=== PATIENT | male | born 1945 | race American Indian/Alaskan Native ===

== ENCOUNTER 2017-08-02 18:32 | Inpatient (IN) | payer MEDICARE ==
--- NOTE | 2017-08-02 18:43 | Emergency Department Report ---
- General Stated complaint: POSS STROKE Time Seen by Provider: 08/02/17 18:37 Source: patient, EMS Mode of arrival: Stretcher Limitations: No Limitations - History of Present Illness Initial comments: Mr. Morocho is a 72-year-old male with history of hypertension, diabetes and HIV. No previous history of CVA. He had sudden onset of left arm hand weakness since 8:30 AM. He denies headache. Denies chest pain. Denies abdominal pain. He no longer takes aspirin. This medication was discontinued according to his report. MD Complaint: focal weakness -: Sudden Time: 08:30 Location: L hand, E Quality: tingling, numbness Consistency: constant Improves with: none Worsens with: none Associated Symptoms: denies other symptoms - Related Data Home Medications Medication Instructions Recorded Confirmed Last Taken Aspirin EC [Aspirin Enteric Coated 81 mg PO QDAY 05/31/14 06/03/15 02/11/15 TAB] Atazanavir Sulfate [Reyataz] 300 mg PO QDAY 05/31/14 06/03/15 02/11/15 Doxazosin Mesylate [Cardura] 1 mg PO DAILY 05/31/14 06/03/15 02/11/15 Ritonavir [Norvir] 100 mg PO QDAY 05/31/14 06/03/15 02/11/15 Rosuvastatin (Nf) [Crestor] 20 mg PO QHS 05/31/14 06/03/15 02/11/15 Previous Rx's Medication Instructions Recorded Last Taken Type Cyanocobalamin [Vitamin B-12] 1,000 mcg PO QDAY #30 tablet 06/07/14 02/11/15 Rx Insulin Glulisine (Sliding) 0 units SUB-Q AC PRN #1 bottle 06/07/14 02/11/15 Rx [Apidra (Sliding Scale)] Sodium Bicarbonate 650 mg PO TID #90 tablet 06/07/14 02/11/15 Rx ALBUTEROL Inhaler [ProAir HFA 1 puff IH TID #1 inha 07/26/14 02/11/15 Rx Inhaler] amLODIPine [Norvasc] 5 mg PO DAILY #30 tab 07/26/14 02/11/15 Rx Albuterol Sulfate [Ventolin HFA] 2 puff IH Q4H PRN #1 pump 02/15/15 Unknown Rx Famotidine [Pepcid] 20 mg PO BID #60 tablet 02/15/15 Unknown Rx Albuterol *Only Ed* [Proventil 2.5 mg IH TIDRT PRN #100 nebu 06/09/15 Unknown Rx 0.5% NEBS] Cyanocobalamin [Vitamin B-12] 1,000 mcg PO QDAY tablet 06/09/15 Unknown Rx Doxazosin [Cardura] 1 mg PO QDAY #30 tablet 06/09/15 Unknown Rx Famotidine [Pepcid] 20 mg PO QDAY #30 tablet 06/09/15 Unknown Rx Insulin Glargine [Lantus VIAL] 25 units SUB-Q HS #1 units 06/09/15 Unknown Rx Insulin Glulisine [Apidra] 6 units SUB-Q ACHS #2 vial 06/09/15 Unknown Rx Ipratropium/Albuterol Sulfate 1 ampul IH Q6HRT 20 Days ampul.neb 06/09/15 Unknown Rx [DUONEB *Not for PRN Use*] Metoprolol Xl [Metoprolol 100 mg PO QDAY #30 tablet 06/09/15 Unknown Rx SUCCINATE ER TAB] Allergies Allergy/AdvReac Type Severity Reaction Status Date / Time No Known Allergies Allergy Verified 05/31/14 06:25 ED Review of Systems ROS: Stated complaint: POSS STROKE Other details as noted in HPI Comment: All other systems reviewed and negative Eyes: denies: vision change Cardiovascular: denies: chest pain Gastrointestinal: denies: abdominal pain ED Past Medical Hx - Past Medical History Hx Hypertension: Yes Hx CVA: No Hx Heart Attack/AMI: Yes Hx Congestive Heart Failure: Yes Hx Diabetes: Yes Hx Renal Disease: Yes Hx COPD: Yes Hx HIV: Yes Additional medical history: Chronic anemia. Visually impaired due to glaucoma- both eyes. States HIV for more than 20 years. Pt on 2LNC @ home. Visually impaired - Surgical History Hx Open Heart Surgery: Yes (Triple Bypass) - Social History Smoking Status: Never Smoker - Medications Home Medications: Home Medications Medication Instructions Recorded Confirmed Last Taken Type Aspirin EC [Aspirin Enteric Coated 81 mg PO QDAY 05/31/14 06/03/15 02/11/15 History TAB] Atazanavir Sulfate [Reyataz] 300 mg PO QDAY 05/31/14 06/03/15 02/11/15 History Doxazosin Mesylate [Cardura] 1 mg PO DAILY 05/31/14 06/03/15 02/11/15 History Ritonavir [Norvir] 100 mg PO QDAY 05/31/14 06/03/15 02/11/15 History Rosuvastatin (Nf) [Crestor] 20 mg PO QHS 05/31/14 06/03/15 02/11/15 History Cyanocobalamin [Vitamin B-12] 1,000 mcg PO QDAY #30 tablet 06/07/14 06/03/15 Rx Insulin Glulisine (Sliding) 0 units SUB-Q AC PRN #1 bottle 06/07/14 06/03/15 Rx [Apidra (Sliding Scale)] Sodium Bicarbonate 650 mg PO TID #90 tablet 06/07/14 06/03/15 02/11/15 Rx ALBUTEROL Inhaler [ProAir HFA 1 puff IH TID #1 inha 07/26/14 06/03/15 02/11/15 Rx Inhaler] amLODIPine [Norvasc] 5 mg PO DAILY #30 tab 07/26/14 06/03/15 02/11/15 Rx Albuterol Sulfate [Ventolin HFA] 2 puff IH Q4H PRN #1 pump 02/15/15 06/03/15 Unknown Rx Famotidine [Pepcid] 20 mg PO BID #60 tablet 02/15/15 06/03/15 Unknown Rx Albuterol *Only Ed* [Proventil 2.5 mg IH TIDRT PRN #100 nebu 06/09/15 Unknown Rx 0.5% NEBS] Cyanocobalamin [Vitamin B-12] 1,000 mcg PO QDAY tablet 06/09/15 Unknown Rx Doxazosin [Cardura] 1 mg PO QDAY #30 tablet 06/09/15 Unknown Rx Famotidine [Pepcid] 20 mg PO QDAY #30 tablet 06/09/15 Unknown Rx Insulin Glargine [Lantus VIAL] 25 units SUB-Q HS #1 units 06/09/15 Unknown Rx Insulin Glulisine [Apidra] 6 units SUB-Q ACHS #2 vial 06/09/15 Unknown Rx Ipratropium/Albuterol Sulfate 1 ampul IH Q6HRT 20 Days ampul.neb 06/09/15 Unknown Rx [DUONEB *Not for PRN Use*] Metoprolol Xl [Metoprolol 100 mg PO QDAY #30 tablet 06/09/15 Unknown Rx SUCCINATE ER TAB] ED Physical Exam - General General appearance: alert, in no apparent distress - Head Head exam: Present: atraumatic, normocephalic - Eye Eye exam: Present: other (left eye opaque lens right pupil round slugguish) - ENT ENT exam: Present: normal exam, normal orophraynx, mucous membranes moist - Neck Neck exam: Present: normal inspection. Absent: tenderness, meningismus - Respiratory Respiratory exam: Present: normal lung sounds bilaterally. Absent: respiratory distress, wheezes, rales, rhonchi - Cardiovascular Cardiovascular Exam: Present: regular rate, normal rhythm, normal heart sounds. Absent: bradycardia, tachycardia, systolic murmur, diastolic murmur - GI/Abdominal GI/Abdominal exam: Present: soft. Absent: distended, tenderness, guarding, rebound - Extremities Exam Extremities exam: Present: other (both lower extremities are wrapped) - Assessment Assessment Interval: Baseline - Level of Consciousness 1a. Level of Consciousness: alert - LOC Questions 1b. LOC Questions: answers correctly - LOC Command 1c. LOC Commands: performs tasks correctly - Best Gaze 2. Best Gaze: normal - Visual 3. Visual: complete hemianopia - Facial Palsy 4. Facial Palsy: minor paralysis - Motor Arm 5b. Motor Arm Right: no drift 5a. Motor Arm Left: drift - Motor Leg 6a. Motor Leg Left: no drift 6b. Motor Leg Right: no drift - Limb Ataxia 7. Limb Ataxia: absent - Sensory 8. Sensory: mild/moderate sensory loss - Best Language 9. Best Language: no aphasia - Dysarthria 10. Dysarthria: normal - Extinction and Inattention 11. Extinction/Inattention: no abnormality - Scoring Total Score: 5 Stroke Severity: Moderate Stroke ED Course Vital Signs 08/02/17 18:50 Temperature 98.1 F Pulse Rate 72 Respiratory 16 Rate Blood Pressure 136/58 [Right] O2 Sat by Pulse 100 Oximetry - Reevaluation(s) Reevaluation #1: 08/02/17 18:44 I performed a brief neurologic exam while patient was on EMS stretcher. Activated Code Stroke. Reevaluation #2: 08/02/17 18:56 I was contacted by the radiology department. Verbal report given to me. No acute findings of stroke. I have ordered aspirin therapy. ED Medical Decision Making - Lab Data Result diagrams: 08/02/17 18:54 08/02/17 18:54 - Medical Decision Making Mr. Morocho presents with left arm left hand weakness since 8:30 for the past 10 hours. Due to time of onset TPA therapy is not indicated. I have ordered aspirin therapy. I spoke with told her neurologist Dr. Chicas who recommended admission. Patient does not meet criteria for thrombectomy due to mild stroke low NIHSS. When I reexamined Mr. Morocho. Stated that he's had pain in the left arm. I' m concerned that he may have had trauma due to fall not reported unwitnessed. Forearm and humerus x-rays negative for fracture or dislocation. He will be admitted to our hospitalist service for neuro evaluation. Critical Care Time: Yes (45) Critical care attestation.: If time is entered above; I have spent that time in minutes in the direct care of this critically ill patient, excluding procedure time. ED Disposition Clinical Impression: CVA (cerebral vascular accident) Disposition: [id number] OP ADMIT IP TO THIS HOSP Is pt being admited?: Yes Does the pt Need Aspirin: No Condition: Stable Time of Disposition: 21:50
--- NOTE | 2017-08-02 18:56 | Cat Scan Report ---
FINAL REPORT EXAM: CT HEAD/BRAIN WO CON HISTORY: neuro deficits < 6hrs or sx present upon awakening COMPARISON: CT of the head from May 2015. TECHNIQUE: Axial images obtained skull base through vertex. FINDINGS: No acute intracranial hemorrhage, midline shift or pathologic extra axial fluid collection. Age related volume loss with compensatory dilatation of the ventricular system and chronic small vessel ischemic disease. Otherwise, joy-white differentiation preserved. Calvarium grossly intact.Prominent benign calcification along the anterior falx. No hyperdense MCA sign. No loss of the subinsular cortex. Prior cataract surgery. Mild mucosal thickening the paranasal sinuses. Mastoid air cells are clear. Benign subcentimeter calcification along the inner table of the left frontal calvarium. This may reflect a small dural calcification or benign meningioma (series 2, image 31). This is stable from prior study. IMPRESSION: No grossly acute intracranial abnormality. Stable mild age related volume loss and chronic small vessel ischemic disease. No evidence of acute transcortical infarct or intracranial hemorrhage by CT at this time. No significant change from prior study. If clinical concern for acute intracranial process remains, MRI would be suggested for further evaluation. RADHA OSR notified of results on August 02, 2017 at 1849 hours EST.
[2017-08-02] MEDS ORDERED: BABY ASPIRIN PO ONE (18:57)
[2017-08-02 19:10] LABS: Hematocrit 27.3 % (35.5-45.6); Mean Corpuscular HGB Conc 33 % (32-34); Mean Corpuscular Hemoglobin 29 pg (28-32); Mean Corpuscular Volume 88 fl (84-94); Red Blood Count 3.11 M/mm3 (3.65-5.03); Red Cell Distribution Width 17.1 % (13.2-15.2)
[2017-08-02 19:11] LABS: Mean Platelet Volume 8.5 fl (6-12); Platelet Count 210 K/mm3 (140-440)
[2017-08-02 19:21] LABS: INR 1.28 (0.87-1.13); Thrombin Time 16.9 Sec. (15.1-19.6)
[2017-08-02 19:47] LABS: Albumin 3.5 g/dL (3.9-5); Calcium 8.9 mg/dL (8.4-10.2)
[2017-08-02] MEDS ORDERED: NORCO 5/325 PO ONE (19:53)
[2017-08-02 20:02] LABS: Anisocytosis 1+; Basophils % (Manual) 0 % (0.0-1.8); Total Cells Counted 100
[2017-08-02 20:03] LABS: Chol/HDL Ratio 3.66 %; Hypochromasia 1+; Ovalocytes Few; Platelet Estimate Consistent w Auto; Poikilocytosis Few
[2017-08-02 20:32] LABS: Nucleated Red Blood Cells 0.4 % (0.0-0.9)
--- NOTE | 2017-08-02 20:37 | XRay Report ---
FINAL REPORT EXAM: XR HUMERUS 2+V LT HISTORY: arm pain COMPARISON: None available. FINDINGS: Two views of the left humerus obtained. Bony structures are intact. Joint spaces are preserved. No acute fracture dislocation. IMPRESSION: No acute bony abnormality.
--- NOTE | 2017-08-02 20:38 | XRay Report ---
FINAL REPORT EXAM: XR FOREARM LT HISTORY: arm pain COMPARISON: Left humerus from the same date. FINDINGS: Two views of the left forearm obtained. Bony structures are intact. No acute fracture dislocation. Moderate olecranon enthesophyte. Joint spaces are grossly preserved. IMPRESSION: No acute bony abnormality.
[2017-08-02] MEDS ORDERED: D50W (25GM) Syringe IV PRN (22:33)
[2017-08-02] MEDS ORDERED: ZOFRAN IV PRN (22:33)
[2017-08-02] MEDS ORDERED: TYLENOL PO PRN (22:33)
[2017-08-02] MEDS ORDERED: SODIUM CHLORIDE FLUSH SYRINGE 10 ML IV PRN (22:33)
--- NOTE | 2017-08-02 22:37 | History and Physical Report ---
History of Present Illness Date of examination: 08/02/17 History of present illness: 69-year-old man with a history of HIV, hypertension, diabetes, chronic kidney disease, glaucoma, CAD, , CHF,chronic kidney disease, vision impaired came to the emergency room complaining of left hand numbness. Review of systems Constitutional: no weight loss, chills Ears, eyes, nose, mouth and throat: no nasal congestion, no nasal discharge, no sinus pressure, no vision change, no red eye. Neck: No neck pain or rigidity. Cardiovascular: no chest pain, palpitations Respiratory: No cough, shortness of breath Gastrointestinal: no abdominal pain, hematochezia Genitourinary : no dysuria, frequency , no hematuria Musculoskeletal: no joint swelling or muscle ache Integumentary: no rash, no pruritis Neurological: no numbness, no focal weakness Endocrine: no cold or heat intolerance, no polyuria or polydipsia Hematologic/Lymphatic: no easy bruising, no easy bleeding, no gland swelling Allergic/Immunologic: no urticaria, no angioedema. PAST MEDICAL HISTORY: HIV, hypertension, diabetes, chronic kidney disease, vision impaired PAST SURGICAL HISTORY: CABG SOCIAL HISTORY: Denies alcohol, tobacco, drugs FAMILY HISTORY: Hypertension Medications and Allergies Allergies Allergy/AdvReac Type Severity Reaction Status Date / Time No Known Allergies Allergy Verified 05/31/14 06:25 Home Medications Medication Instructions Recorded Confirmed Last Taken Type Aspirin EC [Aspirin Enteric Coated 81 mg PO QDAY 05/31/14 06/03/15 02/11/15 History TAB] Atazanavir Sulfate [Reyataz] 300 mg PO QDAY 05/31/14 06/03/15 02/11/15 History Doxazosin Mesylate [Cardura] 1 mg PO DAILY 05/31/14 06/03/15 02/11/15 History Ritonavir [Norvir] 100 mg PO QDAY 05/31/14 06/03/15 02/11/15 History Rosuvastatin (Nf) [Crestor] 20 mg PO QHS 05/31/14 06/03/15 02/11/15 History Cyanocobalamin [Vitamin B-12] 1,000 mcg PO QDAY #30 tablet 06/07/14 06/03/15 Rx Insulin Glulisine (Sliding) 0 units SUB-Q AC PRN #1 bottle 06/07/14 06/03/15 Rx [Apidra (Sliding Scale)] Sodium Bicarbonate 650 mg PO TID #90 tablet 06/07/14 06/03/15 02/11/15 Rx ALBUTEROL Inhaler [ProAir HFA 1 puff IH TID #1 inha 07/26/14 06/03/15 02/11/15 Rx Inhaler] amLODIPine [Norvasc] 5 mg PO DAILY #30 tab 07/26/14 06/03/15 02/11/15 Rx Albuterol Sulfate [Ventolin HFA] 2 puff IH Q4H PRN #1 pump 02/15/15 06/03/15 Unknown Rx Famotidine [Pepcid] 20 mg PO BID #60 tablet 02/15/15 06/03/15 Unknown Rx Albuterol *Only Ed* [Proventil 2.5 mg IH TIDRT PRN #100 nebu 06/09/15 Unknown Rx 0.5% NEBS] Cyanocobalamin [Vitamin B-12] 1,000 mcg PO QDAY tablet 06/09/15 Unknown Rx Doxazosin [Cardura] 1 mg PO QDAY #30 tablet 06/09/15 Unknown Rx Famotidine [Pepcid] 20 mg PO QDAY #30 tablet 06/09/15 Unknown Rx Insulin Glargine [Lantus VIAL] 25 units SUB-Q HS #1 units 06/09/15 Unknown Rx Insulin Glulisine [Apidra] 6 units SUB-Q ACHS #2 vial 06/09/15 Unknown Rx Ipratropium/Albuterol Sulfate 1 ampul IH Q6HRT 20 Days ampul.neb 06/09/15 Unknown Rx [DUONEB *Not for PRN Use*] Metoprolol Xl [Metoprolol 100 mg PO QDAY #30 tablet 06/09/15 Unknown Rx SUCCINATE ER TAB] Exam - Physical Exam Narrative exam: Gen. appearance: Patient lying in bed, no apparent distress HEENT: Normocephalic, atraumatic, pupils equally round and reactive to light, extraocular movement intact, and no sclericterus,. No JVD or thyromegaly or nodule,neck supple, no carotid bruit ,mucous membranes moist, no exudate or erythema Heart: S1, S2, regular rate and rhythm Lungs: Clear to auscultation bilaterally, breathing comfortable Abdomen: Positive bowel sounds, nontender, nondistended, no organomegaly Extremity: No edema, cyanosis, clubbing Skin: No rash, nodules, warm, dry Neuro: Oriented 3, cranial nerves II-12 intact, speech is fluent, motor intact , decrease sensation of left hand - Constitutional Vitals: Temp Pulse Resp BP Pulse Ox 98.1 F 72 16 136/58 100 08/02/17 18:50 08/02/17 18:50 08/02/17 18:50 08/02/17 18:50 08/02/17 18:50 Results - Labs CBC & Chem 7: 08/02/17 18:54 08/02/17 18:54 Labs: Abnormal lab results 08/02/17 08/02/17 08/02/17 Range/Units 18:54 18:54 18:54 RBC 3.11 L (3.65-5.03) M/mm3 Hgb 9.0 L (11.8-15.2) gm/dl Hct 27.3 L (35.5-45.6) % RDW 17.1 H (13.2-15.2) % Seg Neuts % (Manual) 76.0 H (40.0-70.0) % Monocytes % (Manual) 8.0 H (0.0-7.3) % Seg Neutrophils # Man 0.0 L (1.8-7.7) K/mm3 Lymphocytes # (Manual) 0.0 L (1.2-5.4) K/mm3 PT 16.7 H (12.2-14.9) Sec. INR 1.28 H (0.87-1.13) Carbon Dioxide (22-30) mmol/L BUN (9-20) mg/dL Creatinine (0.8-1.5) mg/dL Glucose (75-100) mg/dL Troponin T 0.044 H (0.00-0.029) ng/mL Albumin (3.9-5) g/dL HDL Cholesterol 36 L (40-59) mg/dL 08/02/17 Range/Units 18:54 RBC (3.65-5.03) M/mm3 Hgb (11.8-15.2) gm/dl Hct (35.5-45.6) % RDW (13.2-15.2) % Seg Neuts % (Manual) (40.0-70.0) % Monocytes % (Manual) (0.0-7.3) % Seg Neutrophils # Man (1.8-7.7) K/mm3 Lymphocytes # (Manual) (1.2-5.4) K/mm3 PT (12.2-14.9) Sec. INR (0.87-1.13) Carbon Dioxide 20 L (22-30) mmol/L BUN 28 H (9-20) mg/dL Creatinine 4.0 H (0.8-1.5) mg/dL Glucose 71 L (75-100) mg/dL Troponin T (0.00-0.029) ng/mL Albumin 3.5 L (3.9-5) g/dL HDL Cholesterol (40-59) mg/dL - Imaging and Cardiology CT Scan - head: report reviewed Assessment and Plan xray of hand and humerus reviewed Assessment Right arm weakness/paresthesia maybe secondary to HIV medication HIV hypertension diabetes chronic kidney disease vision impaired Coronary Artery Disease Congestive Heart Failure, chronic Plan Admit to medicine Obtain MR oh head, if negative consider switching HIV medication Do neurochecks, Start aspirin, statin Check fingersticks, initiate insulin sliding scale Continue appropiate outpatient medications DVT prophalaxis
[2017-08-02] MEDS ORDERED: PERCOCET 5/325 ONE (22:58)
[2017-08-02] MEDS: PERCOCET 5/325 PO PRN (23:05)
[2017-08-03 00:14] LABS: Creatine Kinase MB 1.2 ng/mL (0.0-4.0)
[2017-08-03] MEDS: SODIUM BICARBONATE PO SCH ×3 (08:01→22:12)
[2017-08-03] MEDS: PERCOCET 5/325 PO PRN ×2 (08:01→16:55)
[2017-08-03 08:48] LABS: Calcium 9.2 mg/dL (8.4-10.2); Creatine Kinase MB 1.9 ng/mL (0.0-4.0)
[2017-08-03 08:53] LABS: Basophils % (Auto) 0.6 % (0.0-1.8); Eosinophils # (Auto) 0.1 K/mm3 (0.0-0.4); Eosinophils % (Auto) 3.1 % (0.0-4.3); Hematocrit 30.9 % (35.5-45.6); Hemoglobin 10.6 gm/dl (11.8-15.2); Lymphocytes # (Auto) 1.2 K/mm3 (1.2-5.4); Lymphocytes % (Auto) 25.4 % (13.4-35.0); Mean Corpuscular HGB Conc 34 % (32-34); Mean Corpuscular Hemoglobin 29 pg (28-32); Mean Corpuscular Volume 85 fl (84-94); Monocytes # (Auto) 0.5 K/mm3 (0.0-0.8); Monocytes % (Auto) 11.5 % (0.0-7.3); Platelet Count 192 K/mm3 (140-440); Red Blood Count 3.65 M/mm3 (3.65-5.03); Red Cell Distribution Width 16.6 % (13.2-15.2)
[2017-08-03] MEDS: BABY ASPIRIN PO SCH (09:10)
[2017-08-03] MEDS: PEPCID PO SCH ×2 (09:10→22:12)
[2017-08-03] MEDS: REYATAZ PO SCH (09:10)
[2017-08-03] MEDS: LOVENOX SUB-Q SCH (09:10)
[2017-08-03] MEDS: VITAMIN B-12 PO SCH (09:10)
[2017-08-03] MEDS: SODIUM CHLORIDE FLUSH SYRINGE 10 ML IV SCH ×2 (09:11→22:13)
[2017-08-03] MEDS: NORVIR PO SCH (09:11)
[2017-08-03] MEDS ORDERED: PEPCID PO SCH (10:00)
[2017-08-03] MEDS ORDERED: ATAZANAVIR SULFATE 300 MG PO SCH (10:00)
[2017-08-03] MEDS ORDERED: VITAMIN B-12 PO SCH (10:00)
[2017-08-03] MEDS: HumaLOG SUB-Q SCH ×2 (16:55→23:56)
--- NOTE | 2017-08-03 17:11 | Magnetic Resonance Report ---
FINAL REPORT EXAM: MR BRAIN WO CON HISTORY: rt arm numbeness/weakness TECHNIQUE: Multiplanar, multisequence MRI of the brain was performed without intravenous contrast. PRIORS: CT of the head 08/02/2017. FINDINGS: No intracranial hemorrhage, mass, mass effect, midline shift or evidence of ischemic infarct. No restricted diffusion. In the left periventricular white matter, there is a tiny focus of increased signal intensity on the exponential ADC and decreased signal on the ADC map with no corresponding abnormal signal on the diffusion-weighted sequence. This area most likely represents artifact. The intracranial flow voids are patent. The ventricles are normal in size, shape and position. The basilar cisterns are patent. There is mild diffuse cerebral volume loss. The paranasal sinuses and mastoid air cells are clear. The orbits are intact. The extracranial soft tissues are normal. IMPRESSION: 1. No definite acute intracranial abnormality. Tiny focus of signal abnormality in the left periventricular white matter most likely represents artifact as no abnormal signal was seen on the diffusion sequence. 2. Mild diffuse cerebral volume loss.
--- NOTE | 2017-08-03 17:46 | Progress Note ---
Assessment and Plan Assessment and plan: Left arm numbness. MRI neg Acute on CKD. Cr 3.9 today, was 2.5 2 yrs ago. He tells me he does not have a [employer]. Give gentle iv fluids. consult Nephrology History Interval history: Patient presented with left upper ext numbness Hospitalist Physical - Physical exam Narrative exam: General:Not in acute distress, lying in bed, HEENT:Normocephalic, atraumatic Neck:supple,no JVD Lungs: Clear, no wheeze Heart:S1 and S2 regular, no murmurs, rubs or gallop Abd: soft, non tender,non distended, normal bowel sounds Ext: No edema, no clubbing or cyanosis Neuro:Awake,alert,oriented, moves all extremities, Psych:normal mood - Constitutional Vitals: Temp Pulse Resp BP Pulse Ox 98.3 F 89 20 132/61 95 08/03/17 07:27 08/03/17 03:49 08/03/17 07:27 08/03/17 07:27 08/03/17 09:42 Results - Labs CBC & Chem 7: 08/03/17 07:47 08/03/17 07:47 Labs: Laboratory Last Values WBC 4.7 K/mm3 (4.5-11.0) 08/03/17 07:47 RBC 3.65 M/mm3 (3.65-5.03) 08/03/17 07:47 Hgb 10.6 gm/dl (11.8-15.2) L 08/03/17 07:47 Hct 30.9 % (35.5-45.6) L 08/03/17 07:47 MCV 85 fl (84-94) 08/03/17 07:47 MCH 29 pg (28-32) 08/03/17 07:47 MCHC 34 % (32-34) 08/03/17 07:47 RDW 16.6 % (13.2-15.2) H 08/03/17 07:47 Plt Count 192 K/mm3 (140-440) 08/03/17 07:47 Lymph % (Auto) 25.4 % (13.4-35.0) 08/03/17 07:47 [place] % (Auto) 11.5 % (0.0-7.3) H 08/03/17 07:47 Eos % (Auto) 3.1 % (0.0-4.3) 08/03/17 07:47 Baso % (Auto) 0.6 % (0.0-1.8) 08/03/17 07:47 Lymph # 1.2 K/mm3 (1.2-5.4) 08/03/17 07:47 [place] # 0.5 K/mm3 (0.0-0.8) 08/03/17 07:47 Eos # 0.1 K/mm3 (0.0-0.4) 08/03/17 07:47 Baso # 0.0 K/mm3 (0.0-0.1) 08/03/17 07:47 Add Manual Diff Complete 08/02/17 18:54 Total Counted 100 08/02/17 18:54 Seg Neutrophils % 59.4 % (40.0-70.0) 08/03/17 07:47 Seg Neuts % (Manual) 76.0 % (40.0-70.0) H 08/02/17 18:54 Band Neutrophils % 0 % 08/02/17 18:54 Lymphocytes % (Manual) 15.0 % (13.4-35.0) 08/02/17 18:54 Reactive Lymphs % (Man) 0 % 08/02/17 18:54 Monocytes % (Manual) 8.0 % (0.0-7.3) H 08/02/17 18:54 Eosinophils % (Manual) 1.0 % (0.0-4.3) 08/02/17 18:54 Basophils % (Manual) 0 % (0.0-1.8) 08/02/17 18:54 Metamyelocytes % 0 % 08/02/17 18:54 Myelocytes % 0 % 08/02/17 18:54 Promyelocytes % 0 % 08/02/17 18:54 Blast Cells % 0 % 08/02/17 18:54 Nucleated RBC % 0.4 % (0.0-0.9) 08/02/17 18:54 Seg Neutrophils # 2.8 K/mm3 (1.8-7.7) 08/03/17 07:47 Seg Neutrophils # Man 0.0 K/mm3 (1.8-7.7) L 08/02/17 18:54 Band Neutrophils # 0.0 K/mm3 08/02/17 18:54 Lymphocytes # (Manual) 0.0 K/mm3 (1.2-5.4) L 08/02/17 18:54 Abs React Lymphs (Man) 0.0 K/mm3 08/02/17 18:54 Monocytes # (Manual) 0.0 K/mm3 (0.0-0.8) 08/02/17 18:54 Eosinophils # (Manual) 0.0 K/mm3 (0.0-0.4) 08/02/17 18:54 Basophils # (Manual) 0.0 K/mm3 (0.0-0.1) 08/02/17 18:54 Metamyelocytes # 0.0 K/mm3 08/02/17 18:54 Myelocytes # 0.0 K/mm3 08/02/17 18:54 Promyelocytes # 0.0 K/mm3 08/02/17 18:54 Blast Cells # 0.0 K/mm3 08/02/17 18:54 WBC Morphology Not Reportable 08/02/17 18:54 Hypersegmented Neuts Not Reportable 08/02/17 18:54 Hyposegmented Neuts Not Reportable 08/02/17 18:54 Hypogranular Neuts Not Reportable 08/02/17 18:54 Smudge Cells Not Reportable 08/02/17 18:54 Toxic Granulation Not Reportable 08/02/17 18:54 Toxic Vacuolation Not Reportable 08/02/17 18:54 Dohle Bodies Not Reportable 08/02/17 18:54 Pelger-Huet Anomaly Not Reportable 08/02/17 18:54 Daniel Rods Not Reportable 08/02/17 18:54 Platelet Estimate Consistent w auto 08/02/17 18:54 Clumped Platelets Not Reportable 08/02/17 18:54 Plt Clumps, EDTA Not Reportable 08/02/17 18:54 Large Platelets Not Reportable 08/02/17 18:54 Giant Platelets Not Reportable 08/02/17 18:54 Platelet Satelliting Not Reportable 08/02/17 18:54 Plt Morphology Comment Not Reportable 08/02/17 18:54 RBC Morphology Not Reportable 08/02/17 18:54 Dimorphic RBCs Not Reportable 08/02/17 18:54 Polychromasia Not Reportable 08/02/17 18:54 Hypochromasia 1+ 08/02/17 18:54 Poikilocytosis Few 08/02/17 18:54 Anisocytosis 1+ 08/02/17 18:54 Microcytosis Not Reportable 08/02/17 18:54 Macrocytosis Not Reportable 08/02/17 18:54 Spherocytes Not Reportable 08/02/17 18:54 Pappenheimer Bodies Not Reportable 08/02/17 18:54 Sickle Cells Not Reportable 08/02/17 18:54 Target Cells Not Reportable 08/02/17 18:54 Tear Drop Cells Not Reportable 08/02/17 18:54 Ovalocytes Few 08/02/17 18:54 Helmet Cells Not Reportable 08/02/17 18:[address] [place] Bodies Not Reportable 08/02/17 18:54 [place] Rings Not Reportable 08/02/17 18:54 Wiseman Cells Not Reportable 08/02/17 18:54 Bite Cells Not Reportable 08/02/17 18:54 Crenated Cell Not Reportable 08/02/17 18:54 Elliptocytes Not Reportable 08/02/17 18:54 Acanthocytes (Spur) Not Reportable 08/02/17 18:54 Rouleaux Not Reportable 08/02/17 18:54 Hemoglobin C Crystals Not Reportable 08/02/17 18:54 Schistocytes Not Reportable 08/02/17 18:54 Malaria parasites Not Reportable 08/02/17 18:54 Leon Bodies Not Reportable 08/02/17 18:54 Hem Pathologist Commnt No 08/02/17 18:54 PT 16.7 Sec. (12.2-14.9) H 08/02/17 18:54 INR 1.28 (0.87-1.13) H 08/02/17 18:54 APTT 36.0 Sec. (24.2-36.6) 08/02/17 18:54 Thrombin Time 16.9 Sec. (15.1-19.6) 08/02/17 18:54 Sodium 141 mmol/L (137-145) 08/03/17 07:47 Potassium 4.0 mmol/L (3.6-5.0) 08/03/17 07:47 Chloride 103.4 mmol/L (98-107) 08/03/17 07:47 Carbon Dioxide 23 mmol/L (22-30) 08/03/17 07:47 Anion Gap 19 mmol/L 08/03/17 07:47 BUN 28 mg/dL (9-20) H 08/03/17 07:47 Creatinine 3.9 mg/dL (0.8-1.5) H 08/03/17 07:47 Estimated GFR 18 ml/min 08/03/17 07:47 BUN/Creatinine Ratio 7 % 08/03/17 07:47 Glucose 151 mg/dL (75-100) H 08/03/17 07:47 POC Glucose 196 (70-105) H 08/03/17 16:58 Calcium 9.2 mg/dL (8.4-10.2) 08/03/17 07:47 Total Bilirubin 0.30 mg/dL (0.1-1.2) 08/02/17 18:54 AST 25 units/L (5-40) 08/02/17 18:54 ALT 23 units/L (7-56) 08/02/17 18:54 Alkaline Phosphatase 62 units/L (35-129) 08/02/17 18:54 Total Creatine Kinase 59 units/L (55-170) 08/03/17 07:47 CK-MB (CK-2) 1.9 ng/mL (0.0-4.0) 08/03/17 07:47 CK-MB (CK-2) Rel Index 3.2 (0-4) 08/03/17 07:47 Troponin T 0.049 ng/mL (0.00-0.029) H D 08/03/17 07:47 Total Protein 7.5 g/dL (6.3-8.2) 08/02/17 18:54 Albumin 3.5 g/dL (3.9-5) L 08/02/17 18:54 Albumin/Globulin Ratio 0.9 % 08/02/17 18:54 Triglycerides 122 mg/dL (2-149) 08/02/17 18:54 Cholesterol 132 mg/dL (50-199) 08/02/17 18:54 LDL Cholesterol Direct 77 mg/dL (50-130) 08/02/17 18:54 HDL Cholesterol 36 mg/dL (40-59) L 08/02/17 18:54 Cholesterol/HDL Ratio 3.66 % 08/02/17 18:54
[2017-08-03] MEDS ORDERED: NON-FORMULARY (Rosuvastatin (Nf) 20 MG) PO SCH (22:00)
[2017-08-03] MEDS: LANTUS SUB-Q SCH (23:23)
[2017-08-04] MEDS: NACL 0.9% 1000 ML 1,000 ML IV SCH ×2 (02:03→12:42)
[2017-08-04] MEDS: SODIUM BICARBONATE PO SCH ×3 (08:41→21:34)
[2017-08-04] MEDS: HumaLOG SUB-Q SCH ×4 (08:42→23:45)
--- NOTE | 2017-08-04 09:11 | Consultation ---
History of Present Illness - History of Present Illness For the consultation patient was evaluated today Source of information: Patient himself as well as old chart reviewed in our system, patient is a poor historian, also forgetful History of presenting illness: Patient is a 72-year-old the male who has been admitted here since yesterday due to left arm and hand weakness, and has been noted to have a BUN of 28 and creatinine 4.0 hemoglobin 9.0 with a bicarbonate of 20 requiring renal consultation. According to the current chart patient does have history of prior chronic kidney disease and has multiple risk factor for underlying chronic kidney disease including coronary artery disease congestive heart failure hypertension diabetes and prior history of HIV. Review the old records shows that patient's creatinine even as early as 2015 was around 2.5-2.7 range and patient has had acute renal failure in May 2014 when creatinine was around 5-5.8, ultrasonogram done in January 2015 shows evidence of echogenic kidney with a renal cyst. patient Is to follow up with his wall care does not have a planer off bearer to follow up with, does not remember his baseline creatinine He goes to [place] for his healthcare also Significant finding from this admission include elevated troponin of 0.04, albumin of 3.5 and bicarbonate of 20 Past medical history significant for Chronic kidney disease Hypertension Diabetes HIV Renal cyst Stroke Coronary artery disease Congestive heart failure impaired vision Doubtful compliance Current allergies: None Surgical history: Coronary artery bypass graft Social history: No history of any alcohol drug tobacco use Family history: Positive for hypertension Review of system positive for arm weakness numbness All other review of system negative Past medical history is significant for: Current allergies: Reviewed Medication list: Reviewed Family history: Reviewed noncontributory for renal related disorder Social history: Reviewed from the current chart Review of system is positive for Review of system is also negative for any epistaxis, skin rash dysuria burning frequency or urgency flank pain. Complete review other systems her obtain pertinent positive mentioned above other review of system negative Physical examination: Vitals: Reviewed HEENT: Normocephalic/atraumatic skull no pallor or icterus no uremic order oral mucosa moist Neck: Supple without any thyromegaly noted or mass JVD Chest: Clear to auscultation anteriorly no crackles rales or wheezes Heart: Regular rate and rhythm S1 and S2 heard no S3-S4 no pericardial rub Abdomen: Soft nontender no organomegaly no masses no suprapubic fullness no CVA tenderness no renal bruit Extremity: Dry skin, peripheral pulses palpable no cyanosis skin hygiene and poor, Endocrine: Thyroid not enlarged Psych: No evidence of vegetation aggression or behavioral issues noted Chad: Patient does have dressing in both lower extremity; being followed by wound clinic at [place] Back: Nontender thoracolumbar spine Neurological: Alert awake follows commands, grossly nonfocal examination Labs and x-rays: Reviewed from this admission Assessment and plan: Creatinine of 4 in a patient who is 72-year-old with prior history of renal failure, currently not being seen and followed by planer off bearer. Renal prognosis appears to be guarded to poor renal function appears to be stable at this time however on the previous 24 hours needs ongoing monitoring gentle hydration, clinically he doesn't appear to be prerenal/high risk for progression of renal failure Echogenic kidneys noted in the prior ultrasonogram will need to follow-up as he also has had a cyst Patient has multiple risk factors for underlying chronic kidney disease also he is at risk for renovascular disease given the prior history of coronary artery disease coronary artery bypass graft, His overall renal prognosis remains guarded to poor We will order all the basic labs for workup of renal failure including, phosphorus PTH electrophoresis Upon discharge she will need to make a follow-up appointment office, I have explained him about the degree and severity of renal dysfunction and he seems concerned now Diabetes mellitus type 2: Check hemoglobin A1c, assess the degree of proteinuria HIV disease B12 deficiency Hypertension goal systolic blood pressure currently under 140 Had a detailed discussion with patient about the renal care plan all the renal related questions were answered, will order the necessary lab testing as well as imaging as required during this admission. Pertinent lab studies as well as imaging were also discussed with patient. From renal standpoint prognosis appears to be guarded at this time. We'll continue to follow and make recommendation from renal standpoint Please feel free to call me at [phone] if you have any questions in regards to this patient's care Thank you for the consultation. Medications and Allergies Allergies Allergy/AdvReac Type Severity Reaction Status Date / Time No Known Allergies Allergy Verified 05/31/14 06:25 Home Medications Medication Instructions Recorded Confirmed Last Taken Type Aspirin EC [Aspirin Enteric Coated 81 mg PO QDAY 05/31/14 08/03/17 02/11/15 History TAB] Atazanavir Sulfate [Reyataz] 300 mg PO QDAY 05/31/14 08/03/17 02/11/15 History Doxazosin Mesylate [Cardura] 1 mg PO DAILY 05/31/14 08/03/17 02/11/15 History Ritonavir [Norvir] 100 mg PO QDAY 05/31/14 08/03/17 02/11/15 History Rosuvastatin (Nf) [Crestor] 20 mg PO QHS 05/31/14 08/03/17 02/11/15 History Cyanocobalamin [Vitamin B-12] 1,000 mcg PO QDAY #30 tablet 06/07/14 08/03/17 Rx Insulin Glulisine (Sliding) 0 units SUB-Q AC PRN #1 bottle 06/07/14 08/03/17 Rx [Apidra (Sliding Scale)] Sodium Bicarbonate 650 mg PO TID #90 tablet 06/07/14 08/03/17 02/11/15 Rx ALBUTEROL Inhaler [ProAir HFA 1 puff IH TID #1 inha 07/26/14 08/03/17 02/11/15 Rx Inhaler] amLODIPine [Norvasc] 5 mg PO DAILY #30 tab 07/26/14 08/03/17 02/11/15 Rx Albuterol Sulfate [Ventolin HFA] 2 puff IH Q4H PRN #1 pump 02/15/15 08/03/17 Unknown Rx Famotidine [Pepcid] 20 mg PO BID #60 tablet 02/15/15 08/03/17 Unknown Rx Albuterol *Only Ed* [Proventil 2.5 mg IH TIDRT PRN #100 nebu 06/09/15 08/03/17 Unknown Rx 0.5% NEBS] Cyanocobalamin [Vitamin B-12] 1,000 mcg PO QDAY tablet 06/09/15 08/03/17 Unknown Rx Doxazosin [Cardura] 1 mg PO QDAY #30 tablet 06/09/15 08/03/17 Unknown Rx Famotidine [Pepcid] 20 mg PO QDAY #30 tablet 06/09/15 08/03/17 Unknown Rx Insulin Glargine [Lantus VIAL] 25 units SUB-Q HS #1 units 06/09/15 08/03/17 Unknown Rx Insulin Glulisine [Apidra] 6 units SUB-Q ACHS #2 vial 06/09/15 08/03/17 Unknown Rx Ipratropium/Albuterol Sulfate 1 ampul IH Q6HRT 20 Days ampul.neb 06/09/1508/03 Unknown Rx [DUONEB *Not for PRN Use*] Metoprolol Xl [Metoprolol 100 mg PO QDAY #30 tablet 06/09/15 08/03/17 Unknown Rx SUCCINATE ER TAB] Active Meds: Active Medications Acetaminophen (Tylenol) 650 mg PO Q4H PRN PRN Reason: Pain MILD(1-3)/Fever >100.5/CID Aspirin (Baby Aspirin) 81 mg PO QDAY [facility] Last Admin: 08/03/17 09:10 Dose: 81 mg Atazanavir (Reyataz) 300 mg PO DAILY [facility] Last Admin: 08/03/17 09:10 Dose: 300 mg Atorvastatin Calcium (Lipitor) 40 mg PO QHS [facility] Last Admin: 08/03/17 22:12 Dose: 40 mg Cyanocobalamin (Vitamin B-12) 1,000 mcg PO QDAY [facility] Last Admin: 08/03/17 09:10 Dose: 1,000 mcg Dextrose (D50w (25gm) Syringe) 50 ml IV PRN PRN PRN Reason: Hypoglycemia Enoxaparin Sodium (Lovenox) 30 mg SUB-Q QDAY [facility] Last Admin: 08/03/17 09:10 Dose: 30 mg Famotidine (Pepcid) 10 mg PO BID [facility] Last Admin: 08/03/17 22:12 Dose: 10 mg Sodium Chloride (Nacl 0.9% 1000 Ml) 1,000 mls @ 75 mls/hr IV DIRECT [facility] Last Admin: 08/04/17 02:03 Dose: 75 mls/hr Insulin Glargine (Lantus) 25 units SUB-Q HS [facility] Last Admin: 08/03/17 23:23 Dose: 25 units Insulin Human Lispro (Humalog) 0 unit SUB-Q ACHS [facility]; Protocol Last Admin: 08/04/17 08:42 Dose: 1 unit Ondansetron HCl (Zofran) 4 mg IV Q8H PRN PRN Reason: Nausea And Vomiting Oxycodone/Acetaminophen (Percocet 5/325) 1 tab PO Q6H PRN PRN Reason: Pain, Moderate (4-6) Last Admin: 08/03/17 16:55 Dose: 1 tab Ritonavir (Norvir) 100 mg PO QDAY [facility] Last Admin: 08/03/17 09:11 Dose: 100 mg Sodium Bicarbonate (Sodium Bicarbonate) 650 mg PO TID [facility] Last Admin: 08/04/17 08:41 Dose: 650 mg Sodium Chloride (Sodium Chloride Flush Syringe 10 Ml) 10 ml IV BID [facility] Last Admin: 08/03/17 22:13 Dose: 10 ml Sodium Chloride (Sodium Chloride Flush Syringe 10 Ml) 10 ml IV PRN PRN PRN Reason: LINE FLUSH Exam - Vital Signs Vital signs: Vital Signs Pulse Ox 100 08/02/17 18:44 Results - Lab Results 08/03/17 07:47 08/03/17 07:47 Most recent lab results Calcium 9.2 mg/dL (8.4-10.2) 08/03/17 07:47
[2017-08-04 09:46] LABS: Bacteria,Urine 1+ /HPF (Negative); Bilirubin,Urine NEG (Negative); Blood,Urine SM (Negative); Color,Urine Straw (Yellow); Protein,Urine <15 mg/dL mg/dL (Negative); Urobilinogen,Urine < 2.0 mg/dL (<2.0); WBC,Urine < 1.0 /HPF (0.0-6.0)
[2017-08-04] MEDS: LOVENOX SUB-Q SCH (10:22)
[2017-08-04] MEDS: NORVIR PO SCH (10:22)
[2017-08-04] MEDS: PEPCID PO SCH ×2 (10:22→21:35)
[2017-08-04] MEDS: BABY ASPIRIN PO SCH (10:22)
[2017-08-04] MEDS: VITAMIN B-12 PO SCH (10:22)
[2017-08-04] MEDS: REYATAZ PO SCH (10:22)
[2017-08-04] MEDS: SODIUM CHLORIDE FLUSH SYRINGE 10 ML IV SCH ×2 (10:23→21:36)
--- NOTE | 2017-08-04 11:08 | Progress Note ---
Assessment and Plan Assessment and plan: 69-year-old man with a history of HIV, hypertension, diabetes, chronic kidney disease, glaucoma, CAD, , CHF,chronic kidney disease, vision impaired came to the emergency room complaining of left hand numbness. The patient he gets all his care at [facility]. Patient seems aware of his medical condition including renal function but states that he was told to drink lots of water. 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 Plan discussed with patient and he is agreeable History Interval history: Patient is seen today for: Right hand pain and weakness Seen and examined at bedside; 24hour events reviewed; nursing staff ; no adverse overnight events reported to me; Denies any chest pain, nausea, vomiting , diarrhea No fever noted blood pressure controlled Hospitalist Physical - Physical exam Narrative exam: VITAL SIGNS: Reviewed. GENERAL: The patient appeared well nourished and normally developed. Vital signs as documented. HEAD: No signs of head trauma. EYES: Pupils are equal. legally blind EARS: Hearing grossly intact. MOUTH: Oropharynx is normal. NECK: No adenopathy, no JVD. CHEST: Chest with clear breath sounds bilaterally. No wheezes, rales, or rhonchi. CARDIAC: Regular rate and rhythm. S1 and S2, without murmurs, gallops, or rubs. VASCULAR: No Edema. Peripheral pulses normal and equal in all extremities. ABDOMEN: Soft, without detectable tenderness. No sign of distention. No rebound or guarding, and no masses palpated. Bowel Sounds normal. MUSCULOSKELETAL: Good range of motion of all major joints. Extremities without clubbing, cyanosis or edema. NEUROLOGIC EXAM: Alert and oriented x 3. No focal sensory or strength deficits. Speech normal. Follows commands. PSYCHIATRIC: Mood normal. SKIN: Bilateral Brodie bandage dressing to the lower extremities due to frail skin - Constitutional Vitals: Temp Pulse Resp BP Pulse Ox 98.9 F 85 18 164/79 97 08/04/17 07:30 08/04/17 07:30 08/04/17 07:30 08/04/17 07:30 08/04/17 07:30 Results - Labs CBC & Chem 7: 08/03/17 07:47 08/05/17 05:45 Labs: Laboratory Last Values WBC 4.7 K/mm3 (4.5-11.0) 08/03/17 07:47 RBC 3.65 M/mm3 (3.65-5.03) 08/03/17 07:47 Hgb 10.6 gm/dl (11.8-15.2) L 08/03/17 07:47 Hct 30.9 % (35.5-45.6) L 08/03/17 07:47 MCV 85 fl (84-94) 08/03/17 07:47 MCH 29 pg (28-32) 08/03/17 07:47 MCHC 34 % (32-34) 08/03/17 07:47 RDW 16.6 % (13.2-15.2) H 08/03/17 07:47 Plt Count 192 K/mm3 (140-440) 08/03/17 07:47 Lymph % (Auto) 25.4 % (13.4-35.0) 08/03/17 07:47 [place] % (Auto) 11.5 % (0.0-7.3) H 08/03/17 07:47 Eos % (Auto) 3.1 % (0.0-4.3) 08/03/17 07:47 Baso % (Auto) 0.6 % (0.0-1.8) 08/03/17 07:47 Lymph # 1.2 K/mm3 (1.2-5.4) 08/03/17 07:47 [place] # 0.5 K/mm3 (0.0-0.8) 08/03/17 07:47 Eos # 0.1 K/mm3 (0.0-0.4) 08/03/17 07:47 Baso # 0.0 K/mm3 (0.0-0.1) 08/03/17 07:47 Add Manual Diff Complete 08/02/17 18:54 Total Counted 100 08/02/17 18:54 Seg Neutrophils % 59.4 % (40.0-70.0) 08/03/17 07:47 Seg Neuts % (Manual) 76.0 % (40.0-70.0) H 08/02/17 18:54 Band Neutrophils % 0 % 08/02/17 18:54 Lymphocytes % (Manual) 15.0 % (13.4-35.0) 08/02/17 18:54 Reactive Lymphs % (Man) 0 % 08/02/17 18:54 Monocytes % (Manual) 8.0 % (0.0-7.3) H 08/02/17 18:54 Eosinophils % (Manual) 1.0 % (0.0-4.3) 08/02/17 18:54 Basophils % (Manual) 0 % (0.0-1.8) 08/02/17 18:54 Metamyelocytes % 0 % 08/02/17 18:54 Myelocytes % 0 % 08/02/17 18:54 Promyelocytes % 0 % 08/02/17 18:54 Blast Cells % 0 % 08/02/17 18:54 Nucleated RBC % 0.4 % (0.0-0.9) 08/02/17 18:54 Seg Neutrophils # 2.8 K/mm3 (1.8-7.7) 08/03/17 07:47 Seg Neutrophils # Man 0.0 K/mm3 (1.8-7.7) L 08/02/17 18:54 Band Neutrophils # 0.0 K/mm3 08/02/17 18:54 Lymphocytes # (Manual) 0.0 K/mm3 (1.2-5.4) L 18 18:54 Abs React Lymphs (Man) 0.0 K/mm3 08/02/17 18:54 Monocytes # (Manual) 0.0 K/mm3 (0.0-0.8) 08/02/17 18:54 Eosinophils # (Manual) 0.0 K/mm3 (0.0-0.4) 08/02/17 18:54 Basophils # (Manual) 0.0 K/mm3 (0.0-0.1) 08/02/17 18:54 Metamyelocytes # 0.0 K/mm3 08/02/17 18:54 Myelocytes # 0.0 K/mm3 08/02/17 18:54 Promyelocytes # 0.0 K/mm3 08/02/17 18:54 Blast Cells # 0.0 K/mm3 08/02/17 18:54 WBC Morphology Not Reportable 08/02/17 18:54 Hypersegmented Neuts Not Reportable 08/02/17 18:54 Hyposegmented Neuts Not Reportable 08/02/17 18:54 Hypogranular Neuts Not Reportable 08/02/17 18:54 Smudge Cells Not Reportable 08/02/17 18:54 Toxic Granulation Not Reportable 08/02/17 18:54 Toxic Vacuolation Not Reportable 08/02/17 18:54 Dohle Bodies Not Reportable 08/02/17 18:54 Pelger-Huet Anomaly Not Reportable 08/02/17 18:54 Daniel Rods Not Reportable 08/02/17 18:54 Platelet Estimate Consistent w auto 08/02/17 18:54 Clumped Platelets Not Reportable 08/02/17 18:54 Plt Clumps, EDTA Not Reportable 08/02/17 18:54 Large Platelets Not Reportable 08/02/17 18:54 Giant Platelets Not Reportable 08/02/17 18:54 Platelet Satelliting Not Reportable 08/02/17 18:54 Plt Morphology Comment Not Reportable 08/02/17 18:54 RBC Morphology Not Reportable 08/02/17 18:54 Dimorphic RBCs Not Reportable 08/02/17 18:54 Polychromasia Not Reportable 08/02/17 18:54 Hypochromasia 1+ 08/02/17 18:54 Poikilocytosis Few 08/02/17 18:54 Anisocytosis 1+ 08/02/17 18:54 Microcytosis Not Reportable 08/02/17 18:54 Macrocytosis Not Reportable 08/02/17 18:54 Spherocytes Not Reportable 08/02/17 18:54 Pappenheimer Bodies Not Reportable 08/02/17 18:54 Sickle Cells Not Reportable 08/02/17 18:54 Target Cells Not Reportable 08/02/17 18:54 Tear Drop Cells Not Reportable 08/02/17 18:54 Ovalocytes Few 08/02/17 18:54 Helmet Cells Not Reportable 08/02/17 18:54 [place] Bodies Not Reportable 08/02/17 18:54 [place] Rings Not Reportable 08/02/17 18:54 Leonidas Cells Not Reportable 08/02/17 18:54 Bite Cells Not Reportable 08/02/17 18:54 Crenated Cell Not Reportable 08/02/17 18:54 Elliptocytes Not Reportable 08/02/17 18:54 Acanthocytes (Spur) Not Reportable 08/02/17 18:54 Rouleaux Not Reportable 08/02/17 18:54 Hemoglobin C Crystals Not Reportable 08/02/17 18:54 Schistocytes Not Reportable 08/02/17 18:54 Malaria parasites Not Reportable 08/02/17 18:54 Leon Bodies Not Reportable 08/02/17 18:54 Hem Pathologist Commnt No 08/02/17 18:54 PT 16.7 Sec. (12.2-14.9) H 08/02/17 18:54 INR 1.28 (0.87-1.13) H 08/02/17 18:54 APTT 36.0 Sec. (24.2-36.6) 08/02/17 18:54 Thrombin Time 16.9 Sec. (15.1-19.6) 08/02/17 18:54 Sodium 141 mmol/L (137-145) 08/03/17 07:47 Potassium 4.0 mmol/L (3.6-5.0) 08/03/17 07:47 Chloride 103.4 mmol/L (98-107) 08/03/17 07:47 Carbon Dioxide 23 mmol/L (22-30) 08/03/17 07:47 Anion Gap 19 mmol/L 08/03/17 07:47 BUN 28 mg/dL (9-20) H 08/03/17 07:47 Creatinine 3.9 mg/dL (0.8-1.5) H 08/03/17 07:47 Estimated GFR 18 ml/min 08/03/17 07:47 BUN/Creatinine Ratio 7 % 08/03/17 07:47 Glucose 151 mg/dL (75-100) H 08/03/17 07:47 POC Glucose 159 (70-105) H 08/04/17 08:39 Calcium 9.2 mg/dL (8.4-10.2) 08/03/17 07:47 Total Bilirubin 0.30 mg/dL (0.1-1.2) 08/02/17 18:54 AST 25 units/L (5-40) 08/02/17 18:54 ALT 23 units/L (7-56) 08/02/17 18:54 Alkaline Phosphatase 62 units/L (35-129) 08/02/17 18:54 Total Creatine Kinase 59 units/L (55-170) 08/03/17 07:47 CK-MB (CK-2) 1.9 ng/mL (0.0-4.0) 08/03/17 07:47 CK-MB (CK-2) Rel Index 3.2 (0-4) 08/03/17 07:47 Troponin T 0.049 ng/mL (0.00-0.029) H D 08/03/17 07:47 Total Protein 7.5 g/dL (6.3-8.2) 08/02/17 18:54 Albumin 3.5 g/dL (3.9-5) L 08/02/17 18:54 Albumin/Globulin Ratio 0.9 % 08/02/17 18:54 Triglycerides 122 mg/dL (2-149) 08/02/17 18:54 Cholesterol 132 mg/dL (50-199) 08/02/17 18:54 LDL Cholesterol Direct 77 mg/dL (50-130) 08/02/17 18:54 HDL Cholesterol 36 mg/dL (40-59) L 08/02/17 18:54 Cholesterol/HDL Ratio 3.66 % 08/02/17 18:54 Urine Color Straw (Yellow) 08/04/17 09:34 Urine Turbidity Clear (Clear) 08/04/17 09:34 Urine pH 7.0 (5.0-7.0) 08/04/17 09:34 Ur Specific [place] 1.004 (1.003-1.030) 08/04/17 09:34 Urine Protein <15 mg/dl mg/dL (Negative) 08/04/17 09:34 Urine Glucose (UA) 50 mg/dL (Negative) 08/04/17 09:34 Urine Ketones Neg mg/dL (Negative) 08/04/17 09:34 Urine Blood Sm (Negative) 08/04/17 09:34 Urine Nitrite Neg (Negative) 08/04/17 09:34 Urine Bilirubin Neg (Negative) 08/04/17 09:34 Urine Urobilinogen < 2.0 mg/dL (<2.0) 08/04/17 09:34 Ur Leukocyte Esterase Neg (Negative) 08/04/17 09:34 Urine WBC (Auto) < 1.0 /HPF (0.0-6.0) 08/04/17 09:34 Urine RBC (Auto) 3.0 /HPF (0.0-6.0) 08/04/17 09:34 U Epithel Cells (Auto) < 1.0 /HPF (0-13.0) 08/04/17 09:34 Urine Bacteria (Auto) 1+ /HPF (Negative) 08/04/17 09:34 - Imaging and Cardiology MRI - head: image reviewed (negative for acute CVA)
[2017-08-04 12:04] LABS: Creatinine,Urine 27.1 mg/dL (0.1-20.0)
--- NOTE | 2017-08-04 12:07 | Ultrasound Report ---
ULTRASOUND RENAL BILATERAL HISTORY: Renal failure. TECHNIQUE: transabdominal ultrasound with color Doppler interrogation. COMPARISON: 02/12/15. FINDINGS: The right kidney measures 10.9 x 4.7 x 5.5cm. Right renal cortex: 2.0cm. The left kidney measures 10.5 x 4.8 x 5.0cm. Left renal cortex: 1.3cm. The kidneys are normal size, contour and position. There is increased renal parenchymal echotexture bilaterally. Corticomedullary differentiation is preserved. There is mild right hydronephrosis. 2.7 cm cyst is noted in the mid right kidney. No evidence for shadowing calculus, mass or perinephric fluid. The views of the bladder and the region of the ureters appear normal. Prominent prostate gland is noted. IMPRESSION: Renal parenchymal disease. Mild right hydronephrosis. Right renal cyst. Enlarged prostate gland.
[2017-08-04 13:05] LABS: Hepatitis B Core IgM Non-Reactive (NonReactive); Hepatitis B Surface Antigen Non-Reactive (Negative); Hepatitis C Virus Antibody Non-Reactive (NonReactive)
[2017-08-04] MEDS ORDERED: APRESOLINE IV PRN (13:24)
[2017-08-04 13:40] LABS: Hepatitis A Antibody IgM Non-Reactive (NonReactive)
[2017-08-04] MEDS: LANTUS SUB-Q SCH (21:35)
[2017-08-05] MEDS: NACL 0.9% 1000 ML 1,000 ML IV SCH (05:44)
[2017-08-05 06:31] LABS: Calcium 9.4 mg/dL (8.4-10.2)
[2017-08-05] MEDS: HumaLOG SUB-Q SCH ×2 (08:41→12:17)
[2017-08-05] MEDS: SODIUM BICARBONATE PO SCH (08:41)
[2017-08-05 08:45] VITALS: BP 168/78
--- NOTE | 2017-08-05 09:09 | Progress Note ---
Subjective Interval history: Patient was seen today for follow-up, regarding multiple renal related issues Events of 24 hours were noted Patient denies any complaints of chest pain pressure or shortness of breath Interdisciplinary Notes were also reviewed from past 24 hours Vitals labs intake output medications: Reviewed Past medical history: Reviewed Allergies: Reviewed Social history: Reviewed Family history: Reviewed Physical examination Gen.: No acute distress HEENT: Mild pallor nor icterus no uremic order Neck: Supple without any mass or JVD Chest: Clear to auscultation anteriorly Heart: Regular rate and rhythm S1 and S2 heard Abdomen: Soft nontender no suprapubic fullness no masses no renal bruit Extremity: Edema , no peripheral cyanosis Skin: No petechial rashes dry skin Assessment and plan Acute on chronic renal failure, patient's baseline creatinine is in high 2's , creatinine is currently around 3.1 which is markedly improved, from renal standpoint he is stable for discharge to follow-up with either [facility] or our clinic have given him both options Forgetfulness: Patient does appear to have some forgetfulness: He was counseled and educated to follow-up with primary care physician possibly he needs to set up on Metabolic acidosis: Suggested the patient to use quarter teaspoon of baking soda every day and water reduce animal protein increase fruits and vegetables in diet Anemia and chronic kidney disease current hemoglobin actually improving to 10.6 made aware he needs to follow-up with primary care physician and can be seen in the nephrology office Current ultrasonogram; shows evidence of chronic kidney disease, right-sided hydronephrosis; please consult urology/or schedule an outpatient appointment In my opinion patient may need a CT scan of the kidney urinary tract Brain MRI: Shows volume loss consistent with aging possibly underlying dementia Overall patient is stable from renal standpoint Had a detailed discussion with patient about renal care plan, Renal prognosis currently is guarded Significant lab finding were discussed with patient unexplained and simple Yoruba Patient does have good understanding about renal related issues We'll continue to follow and make recommendation from renal standpoint Objective - Vital Signs Vital signs: Vital Signs - 12hr 08/04/17 08/05/17 08/05/17 22:00 02:02 07:21 Temperature 98.4 F 98.7 F Pulse Rate 77 78 Respiratory 20 20 18 Rate Blood Pressure 157/65 168/78 O2 Sat by Pulse 98 96 99 Oximetry 08/05/17 08:00 Temperature Pulse Rate Respiratory Rate Blood Pressure O2 Sat by Pulse 95 Oximetry - Lab 08/03/17 07:47 08/05/17 05:45 Most recent lab results Calcium 9.4 mg/dL (8.4-10.2) 08/05/17 05:45 Urine Creatinine 27.1 mg/dL (0.1-20.0) H 08/04/17 09:34 Urine Sodium 58 mmol/L 08/04/17 09:34 Urine Total Protein 22 mg/dL (5-11.8) H 08/04/17 09:34
[2017-08-05] MEDS: VITAMIN B-12 PO SCH (09:17)
[2017-08-05] MEDS: LOVENOX SUB-Q SCH (09:18)
[2017-08-05] MEDS: NORVIR PO SCH (09:18)
[2017-08-05] MEDS: REYATAZ PO SCH (09:18)
[2017-08-05] MEDS: BABY ASPIRIN PO SCH (09:18)
[2017-08-05] MEDS: SODIUM CHLORIDE FLUSH SYRINGE 10 ML IV SCH (09:19)
[2017-08-05] MEDS: PEPCID PO SCH (09:19)
--- NOTE | 2017-08-05 11:02 | Discharge Summary ---
Providers - Providers Date of Admission: 08/02/17 22:33 Attending physician: NOELLE RODRIGUEZ MD 08/03/17 07:51 Consult to Wound/ET Nurse [CONS] Routine Reason For Exam: wound eval 08/03/17 17:48 Consult to Physician [CONS] Routine Comment: Consulting Provider: SARI BARRERA Physician Instructions: Reason For Exam: Acute on CKD Primary care physician: CAR PRE COOLER Hospitalization Reason for admission: left hand numbness Condition: Stable Hospital course: 69-year-old man with a history of HIV, hypertension, diabetes, chronic kidney disease, glaucoma, CAD, , CHF,chronic kidney disease, vision impaired came to the emergency room complaining of left hand numbness. The patient he gets all his care at [facility]. Patient seems aware of his medical condition including renal function but states that he was told to drink lots of water. Per pipe organ technician review the old records shows that patient's creatinine even as early as 2015 was around 2.5-2.7 range and patient has had acute renal failure in May 2014 when creatinine was around 5-5.8, ultrasonogram done in January 2015 shows evidence of echogenic kidney with a renal cyst Significant finding from this admission include elevated troponin of 0.04, albumin of 3.5 and bicarbonate of 20. On admission the patient was started on gentle hydration after request of records indicated a baseline creatinine was in the high twos. Also had fluctuated considerably of the [facility]. Today' s improved to 3.1 the patient was clinically improved. He did demonstrate some dementia which was concerning extensive counseling was provided regarding to follow with primary care physician for the to follow-up on this. We also did review the MRI which showed some volume loss consistent with age and possible underlying dementia. Was advised the patient about his renal status and the need to follow-up again repeat call was placed to the sister but will call back was given patient appears to have some basic understanding of his clinical condition is wet to follow-up on hold he is seen I think he understands the need to follow up with his kidney monitoring. I have again reemphasized this. He had an ultrasound which showed evidence of chronic kidney disease and right- sided hydronephrosis which will recommend a urology evaluation outpatient and this has been discussed with the patient and he verbalized understanding. He does not have any urinary hesitancy at this time. 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 GENERAL: The patient appeared well nourished and normally developed. Vital signs as documented. HEAD: No signs of head trauma. EYES: Pupils are equal. legally blind EARS: Hearing grossly intact. MOUTH: Oropharynx is normal. NECK: No adenopathy, no JVD. CHEST: Chest with clear breath sounds bilaterally. No wheezes, rales, or rhonchi. CARDIAC: Regular rate and rhythm. S1 and S2, without murmurs, gallops, or rubs. VASCULAR: No Edema. Peripheral pulses normal and equal in all extremities. ABDOMEN: Soft, without detectable tenderness. No sign of distention. No rebound or guarding, and no masses palpated. Bowel Sounds normal. MUSCULOSKELETAL: Good range of motion of all major joints. Extremities without clubbing, cyanosis or edema. NEUROLOGIC EXAM: Alert and oriented x 3. No focal sensory or strength deficits. Speech normal. Follows commands. PSYCHIATRIC: Mood normal. SKIN: Bilateral Brodie bandage dressing to the lower extremities due to frail skin - Constitutional Vitals: Temp Pulse Resp BP Pulse Ox 98.7 F 78 18 168/78 95 08/05/17 07:21 08/05/17 07:21 08/05/17 07:21 08/05/17 07:21 08/05/17 08:00 Plan Activity: advance as tolerated, fall precautions Diet: renal (Suggested the patient to use quarter teaspoon of baking soda every day and water reduce animal protein increase fruits and vegetables in diet) Special Instructions: record daily weights, record daily BP diary, record blood sugar diary Additional Instructions: Follow with [facility] or With Dr ESPINO. stop metformin Follow up with: PRIMARY CARE, [Primary Care Provider] - 7 Days ESPERANZA ROSARIO MD [Staff Physician] - 7 Days CHELSEA ESPINO MD [Staff Physician] - 7 Days Prescriptions: Rosuvastatin (Nf) [Crestor] 40 mg PO QHS #30 tablet Aspirin [Aspirin BABY CHEW TAB] 81 mg PO QDAY #30 tab.chew
[2017-08-05 13:27] LABS: Creatinine,Urine 29.3 mg/dL (0.1-20.0)
[2017-08-05 13:33] LABS: Creatinine 24 Hour,Urine 1.3 (0.8-2.8); Creatinine,Urine 30.9 mg/dL (0.1-20.0)
[2017-08-07 22:58] LABS: Albumin 3.3 g/dL (3.8-4.8)
== END 2017-08-05 13:10 | disposition home or self-care (01) | DRG 682 ==
LOC: ED 18:32 → 2B-ACE 22:33
PROVIDERS: ADMIT Internal Medicine; ATTEND Internal Medicine
DX: N17.9 Acute kidney failure, unspecified (principal); I21.A1 Myocardial infarction type 2; G45.9 Transient cerebral ischemic attack, unspecified; I13.0 Hypertensive heart and chronic kidney disease with heart failure and stage 1 through stage 4 chronic kidney disease, or unspecified chronic kidney disease; E87.2 Acidosis; N18.4 Chronic kidney disease, stage 4 (severe); N13.30 Unspecified hydronephrosis; I48.91 Unspecified atrial fibrillation; I44.7 Left bundle-branch block, unspecified; I50.9 Heart failure, unspecified; J44.9 Chronic obstructive pulmonary disease, unspecified; E11.22 Type 2 diabetes mellitus with diabetic chronic kidney disease; H40.9 Unspecified glaucoma; I25.10 Atherosclerotic heart disease of native coronary artery without angina pectoris; F03.90 Unspecified dementia, unspecified severity, without behavioral disturbance, psychotic disturbance, mood disturbance, and anxiety; H54.8 Legal blindness, as defined in USA; D64.9 Anemia, unspecified; D63.8 Anemia in other chronic diseases classified elsewhere; Z95.1 Presence of aortocoronary bypass graft; Z79.82 Long term (current) use of aspirin; I25.2 Old myocardial infarction; Z82.49 Family history of ischemic heart disease and other diseases of the circulatory system
CPT/HCPCS: 36415; 70450; 70551; 76770; 80048; 80053; 80061; 80074; 81001; 82550; 82553; 82565; 82570; 82575; 82962; 84156; 84165; 84300; 84484; 85007; 85025; 85610; 85670; 85730; 93005; 93010; 94760; A9270-GY; J1650; J1815; J7030

== ENCOUNTER 2019-02-01 10:23 | Emergency (ER) | payer MEDICARE ==
[2019-02-01] MEDS ORDERED: SODIUM CHLORIDE 0.9% 1000 ML 1,000 ML IV ONE (10:50)
[2019-02-01 11:37] LABS: Calcium 9.6 mg/dL (8.4-10.2)
[2019-02-01 11:38] LABS: Hemoglobin 10.2 gm/dl (11.8-15.2); Red Blood Count 3.24 M/mm3 (3.65-5.03)
[2019-02-01 11:39] LABS: Hematocrit 30.4 % (35.5-45.6); Mean Corpuscular HGB Conc 33 % (32-34); Mean Corpuscular Volume 94 fl (84-94); Platelet Count 152 K/mm3 (140-440); Red Cell Distribution Width 14.7 % (13.2-15.2)
--- NOTE | 2019-02-01 11:40 | XRay Report ---
CHEST 2 VIEWS INDICATION: near syncope. COMPARISON: None FINDINGS: Support devices: None. Heart: Within normal limits. Previous CABG changes are suspected. Lungs/pleura: No acute air space or interstitial disease. No pneumothorax. Additional findings: None. IMPRESSION: No acute cardiopulmonary process. Signer Name: Flex Waller Jr, MD Signed: 02/01/2019 11:36 AM Workstation Name: [id number]
[2019-02-01 11:43] LABS: Basophils % (Auto) 0.6 % (0.0-1.8); Eosinophils # (Auto) 0.2 K/mm3 (0.0-0.4); Eosinophils % (Auto) 3.2 % (0.0-4.3); Lymphocytes # (Auto) 1.6 K/mm3 (1.2-5.4); Lymphocytes % (Auto) 33.2 % (13.4-35.0); Monocytes # (Auto) 0.5 K/mm3 (0.0-0.8); Monocytes % (Auto) 10.3 % (0.0-7.3)
--- NOTE | 2019-02-01 12:13 | Cat Scan Report ---
CT head without contrast INDICATION : near syncope. TECHNIQUE: Axial imaging performed from the skull apex through the skull base without the use of con trast. All CT scans at this location are performed using CT dose reduction for ALARA by means of aut omated exposure control. COMPARISON: 08/02/2017 FINDINGS: Parenchyma: No acute intracranial hemorrhage or parenchymal abnormality. No mass or mass effect. Ventricles: Ventricles and sulci are large for age but appear symmetric and are unchanged compared t o the prior exam. Soft tissues: Soft tissues including the orbits appear normal. Bones: No acute osseous abnormality. Sinuses: Sinuses and mastoid air cells are clear. IMPRESSION: 1. No evidence of acute infarct or hemorrhage. 2. Global cortical atrophy. Signer Name: Lukas Dc MD Signed: 02/01/2019 12:08 PM Workstation Name: [id number]
--- NOTE | 2019-02-01 15:31 | Emergency Department Report ---
ED General Adult HPI - General Chief complaint: Dizziness Stated complaint: DIZZY/WEAK Time Seen by Provider: 02/01/19 10:48 Source: patient, EMS Mode of arrival: Stretcher Limitations: No Limitations - History of Present Illness Initial comments: Patient is a 74-year-old -[place] male who is presenting status post a dizzy spell that he had this morning. Patient states he ate breakfast and he walked to the bathroom and afterwards felt weak and had to sit down before passing out. Patient states his breakfast was quite large but he denies any chest pain shortness of breath fevers or chills cough, congestion. Patient states that once he got up he went to the bathroom fine his symptoms started while he was in the hallway. Patient states his right leg buckled. Patient never actually lost consciousness. Severity scale (0 -10): 0 - Related Data Home Medications Medication Instructions Recorded Confirmed Last Taken Aspirin EC [Halfprin EC] 81 mg PO QDAY 05/31/14 08/03/17 02/11/15 Atazanavir Sulfate [Reyataz] 300 mg PO QDAY 05/31/14 08/03/17 02/11/15 Doxazosin Mesylate [Cardura] 1 mg PO DAILY 05/31/14 08/03/17 02/11/15 Ritonavir [Norvir] 100 mg PO QDAY 05/31/14 08/03/17 02/11/15 Previous Rx's Medication Instructions Recorded Last Taken Type Cyanocobalamin [Vitamin B-12] 1,000 mcg PO QDAY #30 tablet 06/07/14 02/11/15 Rx Insulin Glulisine (Sliding) 0 units SUB-Q AC PRN #1 bottle 06/07/14 02/11/15 Rx [Apidra (Sliding Scale)] Sodium Bicarbonate 650 mg PO TID #90 tablet 06/07/14 02/11/15 Rx ALBUTEROL Inhaler (OR & NICU) 1 puff IH TID #1 inha 07/26/14 02/11/15 Rx [ProAir HFA Inhaler] amLODIPine 5 mg PO DAILY #30 tab 07/26/14 02/11/15 Rx Albuterol Sulfate [Ventolin HFA] 2 puff IH Q4H PRN #1 pump 02/15/15 Unknown Rx Famotidine [Pepcid] 20 mg PO BID #60 tablet 02/15/15 Unknown Rx Albuterol *Only Ed* [Proventil 2.5 mg IH TIDRT PRN #100 nebu 06/09/15 Unknown Rx 0.5% NEBS] Cyanocobalamin [Vitamin B-12] 1,000 mcg PO QDAY tablet 06/09/15 Unknown Rx Doxazosin [Cardura] 1 mg PO QDAY #30 tablet 06/09/15 Unknown Rx Famotidine [Pepcid] 20 mg PO QDAY #30 tablet 06/09/15 Unknown Rx Insulin Glargine [Lantus VIAL] 25 units SUB-Q HS #1 units 06/09/15 Unknown Rx Insulin Glulisine [Apidra] 6 units SUB-Q ACHS #2 vial 06/09/15 Unknown Rx Ipratropium/Albuterol Sulfate 1 ampul IH Q6HRT 20 Days ampul.neb 06/09/15 Unknown Rx [DUONEB *Not for PRN Use*] Metoprolol Xl [Metoprolol 100 mg PO QDAY #30 tablet 06/09/15 Unknown Rx SUCCINATE ER TAB] Aspirin [Aspirin BABY CHEW TAB] 81 mg PO QDAY #30 tab.chew 08/05/17 Unknown Rx Rosuvastatin (Nf) [Crestor] 40 mg PO QHS #30 tablet 08/05/17 Unknown Rx Allergies Allergy/AdvReac Type Severity Reaction Status Date / Time No Known Allergies Allergy Verified 05/31/14 06:25 ED Review of Systems ROS: Stated complaint: DIZZY/WEAK Other details as noted in HPI Comment: All other systems reviewed and negative ED Past Medical Hx - Past Medical History Previous Medical History?: Yes Hx Hypertension: Yes Hx CVA: No Hx Heart Attack/AMI: Yes Hx Congestive Heart Failure: Yes Hx Diabetes: Yes Hx Renal Disease: Yes Hx COPD: Yes Hx HIV: Yes Additional medical history: Chronic anemia. Visually impaired due to glaucoma- both eyes. States HIV for more than 20 years. Pt on 2LNC @ home. Visually impaired - Surgical History Past Surgical History?: Yes Hx Open Heart Surgery: Yes (Triple Bypass) - Social History Smoking Status: Former Smoker Substance Use Type: None - Medications Home Medications: Home Medications Medication Instructions Recorded Confirmed Last Taken Type Aspirin EC [Halfprin EC] 81 mg PO QDAY 05/31/14 08/03/17 02/11/15 History Atazanavir Sulfate [Reyataz] 300 mg PO QDAY 05/31/14 08/03/17 02/11/15 History Doxazosin Mesylate [Cardura] 1 mg PO DAILY 05/31/14 08/03/17 02/11/15 History Ritonavir [Norvir] 100 mg PO QDAY 05/31/14 08/03/17 02/11/15 History Cyanocobalamin [Vitamin B-12] 1,000 mcg PO QDAY #30 tablet 06/07/14 08/03/17 02/11/15 Rx Insulin Glulisine (Sliding) 0 units SUB-Q AC PRN #1 bottle 06/07/14 08/03/17 02/11/15 Rx [Apidra (Sliding Scale)] Sodium Bicarbonate 650 mg PO TID #90 tablet 06/07/14 08/03/17 02/11/15 Rx ALBUTEROL Inhaler (OR & NICU) 1 puff IH TID #1 inha 07/26/14 08/03/17 02/11/15 Rx [ProAir HFA Inhaler] amLODIPine 5 mg PO DAILY #30 tab 07/26/14 08/03/17 02/11/15 Rx Albuterol Sulfate [Ventolin HFA] 2 puff IH Q4H PRN #1 pump 02/15/15 08/03/17 Unknown Rx Famotidine [Pepcid] 20 mg PO BID #60 tablet 02/15/15 08/03/17 Unknown Rx Albuterol *Only Ed* [Proventil 2.5 mg IH TIDRT PRN #100 nebu 06/09/15 08/03/17 Unknown Rx 0.5% NEBS] Cyanocobalamin [Vitamin B-12] 1,000 mcg PO QDAY tablet 06/09/15 08/03/17 Unknown Rx Doxazosin [Cardura] 1 mg PO QDAY #30 tablet 06/09/15 08/03/17 Unknown Rx Famotidine [Pepcid] 20 mg PO QDAY #30 tablet 06/09/15 08/03/17 Unknown Rx Insulin Glargine [Lantus VIAL] 25 units SUB-Q HS #1 units 06/09/15 08/03/17 Unknown Rx Insulin Glulisine [Apidra] 6 units SUB-Q ACHS #2 vial 06/09/15 08/03/17 Unknown Rx Ipratropium/Albuterol Sulfate 1 ampul IH Q6HRT 20 Days ampul.neb 06/09/15 08/03/17 Unknown Rx [DUONEB *Not for PRN Use*] Metoprolol Xl [Metoprolol 100 mg PO QDAY #30 tablet 06/09/15 08/03/17 Unknown Rx SUCCINATE ER TAB] Aspirin [Aspirin BABY CHEW TAB] 81 mg PO QDAY #30 tab.chew 08/05/17 Unknown Rx Rosuvastatin (Nf) [Crestor] 40 mg PO QHS #30 tablet 08/05/17 Unknown Rx ED Physical Exam - General Limitations: No Limitations General appearance: alert, in no apparent distress - Head Head exam: Present: atraumatic, normocephalic - Eye Eye exam: Present: normal appearance, PERRL, EOMI - ENT ENT exam: Present: mucous membranes moist - Neck Neck exam: Present: normal inspection - Respiratory Respiratory exam: Present: normal lung sounds bilaterally. Absent: respiratory distress, wheezes, rales, rhonchi - Cardiovascular Cardiovascular Exam: Present: regular rate, normal rhythm, normal heart sounds. Absent: systolic murmur, diastolic murmur, rubs, gallop - GI/Abdominal GI/Abdominal exam: Present: soft, normal bowel sounds. Absent: distended, tenderness, guarding, rebound - Rectal Rectal exam: Present: deferred - Extremities Exam Extremities exam: Present: normal inspection - Back Exam Back exam: Present: normal inspection - Neurological Exam Neurological exam: Present: alert, oriented X3 - Psychiatric Psychiatric exam: Present: normal affect, normal mood - Skin Skin exam: Present: warm, dry, intact, normal color. Absent: rash ED Course Vital Signs 02/01/19 02/01/19 02/01/19 10:39 10:40 10:46 Temperature 97.9 F Pulse Rate 65 70 Respiratory 16 14 Rate Blood Pressure 134/61 Blood Pressure 134/61 [Left] O2 Sat by Pulse 100 93 100 Oximetry 02/01/19 02/01/19 02/01/19 11:00 11:46 12:00 Temperature Pulse Rate 62 56 L Respiratory 14 12 Rate Blood Pressure 144/64 102/74 123/56 Blood Pressure [Left] O2 Sat by Pulse 100 100 100 Oximetry 02/01/19 02/01/19 02/01/19 12:16 12:30 13:00 Temperature Pulse Rate 64 66 60 Respiratory 13 18 15 Rate Blood Pressure 116/59 116/59 124/58 Blood Pressure [Left] O2 Sat by Pulse 96 97 100 Oximetry 02/01/19 02/01/19 02/01/19 13:30 14:00 14:30 Temperature Pulse Rate 60 58 L 59 L Respiratory 17 19 16 Rate Blood Pressure 107/62 137/68 133/61 Blood Pressure [Left] O2 Sat by Pulse 100 98 99 Oximetry 02/01/19 15:00 Temperature Pulse Rate 61 Respiratory 16 Rate Blood Pressure 131/66 Blood Pressure [Left] O2 Sat by Pulse 99 Oximetry ED Medical Decision Making - Lab Data Result diagrams: 02/01/19 11:00 02/01/19 11:00 Lab Results 02/01/19 02/01/19 Range/Units 11:00 11:00 WBC 4.6 (4.5-11.0) K/mm3 RBC 3.24 L (3.65-5.03) M/mm3 Hgb 10.2 L (11.8-15.2) gm/dl Hct 30.4 L (35.5-45.6) % MCV 94 (84-94) fl MCH 31 (28-32) pg MCHC 33 (32-34) % RDW 14.7 (13.2-15.2) % Plt Count 152 (140-440) K/mm3 Lymph % (Auto) 33.2 (13.4-35.0) % Floyd % (Auto) 10.3 H (0.0-7.3) % Eos % (Auto) 3.2 (0.0-4.3) % Baso % (Auto) 0.6 (0.0-1.8) % Lymph # 1.6 (1.2-5.4) K/mm3 Floyd # 0.5 (0.0-0.8) K/mm3 Eos # 0.2 (0.0-0.4) K/mm3 Baso # 0.0 (0.0-0.1) K/mm3 Seg Neutrophils % 52.7 (40.0-70.0) % Seg Neutrophils # 2.5 (1.8-7.7) K/mm3 Sodium 135 L (137-145) mmol/L Potassium 3.7 (3.6-5.0) mmol/L Chloride 100.8 (98-107) mmol/L Carbon Dioxide 19 L (22-30) mmol/L Anion Gap 19 mmol/L BUN 22 H (9-20) mg/dL Creatinine 2.6 H (0.8-1.5) mg/dL Estimated GFR 29 ml/min BUN/Creatinine Ratio 8 % Glucose 248 H (75-100) mg/dL Calcium 9.6 (8.4-10.2) mg/dL - EKG Data -: EKG Interpreted by Vt - EKG Data 02/01/19 15:54 EKG shows sinus rhythm a rate of 63 axis is normal intervals are normal. Patient does appear to have a second-degree type I AV block. - Radiology Data Radiology results: report reviewed (CXR WNL) CT head without contrast INDICATION : near syncope. TECHNIQUE: Axial imaging performed from the skull apex through the skull base without the use of contrast. All CT scans at this location are performed using CT dose reduction for ALARA by means of automated exposure control. COMPARISON: 08/02/2017 FINDINGS: Parenchyma: No acute intracranial hemorrhage or parenchymal abnormality. No mass or mass effect. Ventricles: Ventricles and sulci are large for age but appear symmetric and are unchanged compared to the prior exam. Soft tissues: Soft tissues including the orbits appear normal. Bones: No acute osseous abnormality. Sinuses: Sinuses and mastoid air cells are clear. IMPRESSION: 1. No evidence of acute infarct or hemorrhage. 2. Global cortical atrophy. Signer Name: Lukas Sanchez MD Signed: 02/01/2019 12:08 PM Workstation Name: [id number] Transcribed By: REF Dictated By: LUKAS SANCHEZ MD Electronically Authenticated By: LUKAS SANCHEZ MD Signed Date/Time: 02/01/19 1208 - Medical Decision Making Patient is a 74-year-old male who is presenting with some mild dizziness and near-syncope which has completely resolved. Patient's states he feels back at his baseline at this time. He denies any chest pain shortness of breath nausea vomiting cough cold or congestion. EKG does show that he has a AV block second degree type I. Again the patient is asymptomatic and will be referred to cardiology for outpatient follow-up. Patient is eaten here and we have monitored him for multiple hours and the patient continues to state that he feels fine. Critical care attestation.: If time is entered above; I have spent that time in minutes in the direct care of this critically ill patient, excluding procedure time. ED Disposition Clinical Impression: Near syncope, AV block, Mobitz 1 Disposition: DC-01 TO HOME OR SELFCARE Is pt being admited?: No Does the pt Need Aspirin: No Condition: Stable Instructions: Near Syncope (ED), Bradycardia (ED) Referrals: LAQUITA FRIEND MD [Staff Physician] - 3-5 Days Time of Disposition: 16:00
[2019-02-01 17:42] VITALS: BP 146/66
== END 2019-02-01 17:41 | disposition home or self-care (01) ==
LOC: ED 10:23
DX: R55 Syncope and collapse (principal); I44.1 Atrioventricular block, second degree; I50.9 Heart failure, unspecified; I11.0 Hypertensive heart disease with heart failure; E11.9 Type 2 diabetes mellitus without complications; J44.9 Chronic obstructive pulmonary disease, unspecified; Z21 Asymptomatic human immunodeficiency virus [HIV] infection status; Z86.2 Personal history of diseases of the blood and blood-forming organs and certain disorders involving the immune mechanism; Z87.891 Personal history of nicotine dependence; Z79.82 Long term (current) use of aspirin; Z79.4 Long term (current) use of insulin; Z79.899 Other long term (current) drug therapy
CPT/HCPCS: 36415; 70450; 71046; 80048; 85025; 93005; 93010; 96360; 99285; J7030; Q9967